=== PATIENT | female | born 1965 | race Caucasian/White ===

== ENCOUNTER 2017-01-31 05:22 | Day surgery (SDC) | payer BC ==
[~2017-01-31] VITALS: Ht 175.3 cm; Wt 100.7 kg
[2017-01-31 05:52] LABS: HCG,QUAL RESULT NEGATIVE (NEGATIVE)
[2017-01-31] MEDS ORDERED: CEFAZOLIN SOD 1 GM in D5W 50 ML IV ONE (07:00)
[2017-01-31] MEDS ORDERED: SEVOFLURANE 15 MIN GAS INH ONE (07:30)
[2017-01-31] MEDS ORDERED: SUCCINYLCHOLINE CHLORIDE 20 MG/ML(QUELICIN) IVP ONE (07:30)
[2017-01-31] MEDS ORDERED: BUPIVACAINE /EPINEPHRINE/PF 0.25% 30 ML VIAL INJ ONE (07:30)
[2017-01-31] MEDS ORDERED: LR 1,000 ML IV.SOLN IV ONE (07:30)
[2017-01-31] MEDS ORDERED: SUGAMMADEX SODIUM 200 MG/2 ML VIAL IV ONE (07:30)
[2017-01-31] MEDS ORDERED: CEFAZOLIN 2 GM IVPB PREMIX 50 ML IV ONE (07:30)
[2017-01-31] MEDS ORDERED: MIDAZOLAM HCL 5 MG/5 ML VIAL IVP ONE (07:30)
[2017-01-31] MEDS ORDERED: ROCURONIUM BROMIDE 10 MG/ML (ZEMURON) IV ONE (07:30)
[2017-01-31] MEDS ORDERED: fentaNYL CITRATE 250 MCG/5 ML AMP IV ONE (07:30)
[2017-01-31] MEDS ORDERED: PROPOFOL 200MG/ 20ML VIAL (DIPRIVAN) IV ONE (07:30)
[2017-01-31] MEDS ORDERED: IOHEXOL 50 ML IV ONE (07:43)
[2017-01-31] MEDS ORDERED: LR 1,000 ML IV SCH (08:35)
[2017-01-31] MEDS ORDERED: MEPERIDINE HCL/PF 50 MG/ML AMP IVP PRN ×2 (08:45)
[2017-01-31] MEDS ORDERED: MEPERIDINE HCL/PF 25 MG/ML DISP.SYRIN IVP PRN (08:45)
[2017-01-31] MEDS ORDERED: METOCLOPRAMIDE HCL 10 MG/2 ML VIAL IVP PRN (08:45)
[2017-01-31] MEDS ORDERED: D5/0.45 NS 1,000 ML IV SCH (08:55)
[2017-01-31] MEDS ORDERED: HYDROmorphone 1 MG INJ. 1 MG/ML AMPUL IVP PRN (09:00)
[2017-01-31] MEDS ORDERED: HYDROcodone/ACETAMIN 5-325 MG TAB (NORCO/ VICODIN) PO PRN ×2 (09:00)
[2017-01-31] MEDS ORDERED: MEPERIDINE HCL/PF 50 MG/ML AMP ONE (09:31)
[2017-01-31 11:53] VITALS: BP_SYST 133
[2017-01-31] MEDS ORDERED: METOCLOPRAMIDE HCL 10 MG/2 ML VIAL IVP SCH (12:00)
== END 2017-01-31 11:00 | disposition home or self-care (01) ==
LOC: SDS 05:22 → SMU 05:23 → SDS 11:00
PROVIDERS: ATTEND Colon & Rectal Surgery
DX: K80.10 Calculus of gallbladder with chronic cholecystitis without obstruction (principal); Z98.890 Other specified postprocedural states; Z88.8 Allergy status to other drugs, medicaments and biological substances; Z68.34 Body mass index [BMI] 34.0-34.9, adult; Z79.899 Other long term (current) drug therapy; I10 Essential (primary) hypertension; K21.9 Gastro-esophageal reflux disease without esophagitis; E66.01 Morbid (severe) obesity due to excess calories
CPT/HCPCS: 47563; 76000; 84703; 88304; C1727; C1758; C9399; J0330; J0690; J2175; J2250; J2704; J3010; J3490; J7060; J7120; Q9967